=== PATIENT | female | born 1965 | race Caucasian/White ===

== ENCOUNTER 2018-04-01 06:08 | Day surgery (SDC) | payer BC ==
[2018-04-01] MEDS ORDERED: PROPOFOL 10 MG/ML VIAL IV ONE (06:09)
[2018-04-01] MEDS ORDERED: KETOROLAC 30 MG/ML VIAL IVP ONE (06:09)
[2018-04-01] MEDS ORDERED: LIDOCAINE 2% MDV (20MG/ML) 20ML VIAL IV ONE (06:09)
[2018-04-01] MEDS ORDERED: SEVOFLURANE 250 ML INH ONE (06:09)
[2018-04-01] MEDS ORDERED: FENTANYL PF 100MCG/2ML VIAL IV ONE ×2 (06:09)
[2018-04-01] MEDS ORDERED: MIDAZOLAM HCL 2MG/2ML VIAL IV ONE (06:09)
[2018-04-01] MEDS ORDERED: ONDANSETRON HCL IV 4 MG/2 ML VIAL IVP ONE (06:09)
[2018-04-01 06:23] LABS: HEMATOCRIT 29.1 % (35.0-47.0); HEMOGLOBIN 8.1 gm/dl (11.6-16.0)
--- NOTE | 2018-04-03 21:39 | Operative Note ---
DATE OF SURGERY: 04/01/2018 PREOPERATIVE DIAGNOSIS: HEAVY MENSTRUAL BLEEDING. POSTOPERATIVE DIAGNOSIS: HEAVY MENSTRUAL BLEEDING. PROCEDURE PERFORMED: DIAGNOSTIC HYSTEROSCOPY, D&C WITH NOVASURE ABLATION. PHYSICIAN: LEXI MCKEON D.O. ANESTHESIA: GENERAL. COMPLICATIONS: NONE. ESTIMATED BLOOD LOSS: MINIMAL. SPECIMEN: ENDOMETRIAL CURETTINGS. PROCEDURE: The patient was prepped for surgery and brought back to the Operative Suite. She was placed under general anesthesia. She was sterilely prepped and draped in the dorsal lithotomy position. A weighted speculum was placed in the vaginal vault. A single-tooth tenaculum was used to order picker/assembler the anterior lip of the cervix. The cervix was serially dilated to 16 Yi. The hysteroscope was then placed. Lining that was atrophic was noted. No polyps were noted. The hysteroscope was then removed. Curettings were done with minimal tissue. The uterus sounded to 8 cm. The NovaSure device was then placed. The length was 4. The width was 4.3. It passed testing. It was activated at a power of 95. It went for 2 minutes. The NovaSure device was removed. The tenaculum was removed. The patient was then awoken from general anesthesia and brought back to the Recovery Room in satisfactory condition. JOB NUMBER: [id number] MTDD
== END 2018-04-01 09:13 | disposition home or self-care (01) ==
LOC: SUR 06:08
PROVIDERS: ATTEND Obstetrics & Gynecology
DX: F17.210 Nicotine dependence, cigarettes, uncomplicated (principal)
CPT/HCPCS: 58120; 58563; 00952; 85018; 85014; 81025; J1885; J2405; J3010

== ENCOUNTER 2018-08-18 11:00 | Day surgery (SDC) | payer BC ==
[2018-08-18] MEDS ORDERED: PROPOFOL 10 MG/ML VIAL IV ONE (11:01)
[2018-08-18] MEDS ORDERED: FENTANYL PF 100MCG/2ML VIAL IV ONE (11:01)
[2018-08-18] MEDS ORDERED: LIDOCAINE 2% MDV (20MG/ML) 20ML VIAL IV ONE (11:01)
--- NOTE | 2018-08-18 15:40 | Operative Note ---
DATE OF SURGERY: 08/18/2018 OPERATION: COLONOSCOPY to the cecum and terminal ileum. INDICATION: Iron deficiency anemia. This is the patient's first colonoscopy. ANESTHESIA: Intravenous sedation was administered by the department of anesthesiology and included Diprivan titrated to effect. PROCEDURE: Following informed consent from this alert individual including a discussion of the risks and benefits of the procedure and an opportunity for the patient to ask questions, the patient was in the left lateral decubitus position. A digital rectal examination was performed. No abnormalities were noted. Following this, the Olympus IFK337 video colonoscope was inserted into the rectum without resistance. The rectal mucosa had a normal appearance with normal folds and distensibility. The colonoscope was advanced up through the bowel to the level of the cecum without much difficulty. Throughout the bowel the mucosa appeared normal, the folds were normal, and the bowel was fairly well distensible. The cecum was well defined by noting the appendiceal orifice and ileocecal valve. The colon preparation was good. The terminal ileum was cannulated for approximately 10 cm and found to be normal. From the base of the cecum, the colonoscope was then slowly withdrawn. No changes were noted throughout the bowel. Retroflexion in the rectum did reveal small internal hemorrhoids. The endoscope was straightened and removed. The patient tolerated the procedure well and was returned to the recovery area in stable condition. IMPRESSION: Unremarkable colonoscopy to the cecum and terminal ileum with the exception of small internal hemorrhoids. RECOMMENDATIONS: The patient was advised to follow up with Dr. Latham and Hematology. She should have screening colonoscopy in 10 years' time or sooner if problems arise. As always, thank you for allowing me to participate in the care of your patient. CC: MD RUTHIE Shaw
--- NOTE | 2018-08-18 15:40 | Operative Note ---
DATE OF SURGERY: 08/18/2018 OPERATION: ESOPHAGOGASTRODUODENOSCOPY with biopsy. INDICATION: Iron deficiency anemia. HISTORY: The patient is a pleasant 53-year-old female who has been suffering with iron deficiency anemia for years. She claims to have had heavy menstrual cycles regularly and for this reason had an ablation completed a few months ago. She has been following with her primary care physician for her anemia. She is also scheduled to see reheater. She denies any gross GI tract hemorrhaging. She denies any knowledge of peptic ulcer disease. She denies use of anti-inflammatory drugs. There is no history of colitis or Crohn disease. Upper and lower endoscopy are completed at this time for further evaluation of her anemia. ANESTHESIA: Intravenous sedation was administered by the department of anesthesiology and included Diprivan titrated to effect. PROCEDURE: Following informed consent from this alert individual, including a discussion of the risks and benefits of the procedure and an opportunity for the patient to ask questions, the patient was in the left lateral decubitus position. The Olympus EXF544 video endoscope was inserted into the esophagus without resistance. The proximal esophagus had a normal appearance with normal folds and distensibility. The mid and distal esophagus likewise was free from mucosal changes. The squamocolumnar junction was smooth and well defined. There was a 3 cm hiatal hernia sac noted which was free from mucosal changes. The subdiaphragmatic stomach was entered and found to be unremarkable. The pylorus was patent. The duodenal bulb, sweep and descending duodenum were examined in a serial fashion and found to be normal as well. The endoscope was then withdrawn back into the body of the stomach, where retroflexion accomplished following air insufflation failed to again revealed a small hiatal hernia. The endoscope was then straightened and withdrawn through a normal esophagus after biopsies were taken from the duodenum to rule out the remote possibility of celiac sprue or iron malabsorptive processes. Again, the esophagus upon withdrawal was endoscopically normal. The instrument was removed. The patient tolerated the procedure well and was returned to the recovery area in stable condition. IMPRESSION: 1. A 3 cm hiatal hernia. 2. Otherwise unremarkable esophagogastroduodenoscopy. Biopsies taken from the duodenal bulb and second portion of the duodenum as described. RECOMMENDATION: The patient will undergo colonoscopy at this time. Further recommendations may be forthcoming pending results of biopsy. Followup will also be with Dr. Latham and with Hematology. As always, thank you for allowing me to participate in the care of your patient. CC: Shiraz Latham MD [facility]
== END 2018-08-18 13:40 | disposition home or self-care (01) ==
LOC: HOP 11:00 → LAB 13:40
PROVIDERS: ATTEND Internal Medicine Gastroenterology
DX: D50.9 Iron deficiency anemia, unspecified (principal); K44.9 Diaphragmatic hernia without obstruction or gangrene; K21.9 Gastro-esophageal reflux disease without esophagitis
CPT/HCPCS: 81025